=== PATIENT | male | born 2000 ===

== ENCOUNTER 2023-02-16 10:27 | Day surgery (SDC) | payer OTHER, MEDICAID, SELFPAY ==
[2023-02-11 10:44] VITALS: BMI 23.3
--- NOTE | 2023-02-15 08:19 | PM.PREOP ---
Pre-operative Note Interval Note History & Physical reviewed/Exam performed by Physician: Yes Changes to H&P: No
[2023-02-16] VITALS (10 sets, daily range): BP systolic 95–143; BP diastolic 55–89; PULSE 58–125; RESP 12–18; TEMP 36.1–36.6; O2SAT 98–100; BMI 22.8
[2023-02-16] MEDS: LACTATED RINGERS 1,000 ML 200 ML IV (11:05)
[2023-02-16] MEDS: ACETAMINOPHEN 325 MG TABLET 975 MG PO (11:05)
[2023-02-16] MEDS: CEFAZOLIN 2 GM/100 ML PREMIX 100 ML IV (13:06)
--- NOTE | 2023-02-16 13:18 | SUR.OPER ---
Supine on padded OR bed, head on pillow, arms padded and tucked at sides, legs uncrossed, safety belt at thigh.
[2023-02-16] MEDS: LACTATED RINGERS 1,000 ML 42 ML IV (13:28)
[2023-02-16] MEDS: BUPIVACAINE 0.25% (PF) VIAL 7 ML INJ (15:10)
--- NOTE | 2023-02-16 15:16 | PM.OP.1 ---
Operative Date/Time/Diagnoses Date of procedure: 02/16/23 Time of procedure: 15:16 Pre-op diagnosis: Left inguinal hernia Post-op diagnosis: same Procedure & Clinicians Procedure: Laparoscopic transabdominal preperitoneal repair of left inguinal hernia Same procedure as scheduled: Yes Indications: Symptomatic reducible left inguinal hernia Surgeon: Oneil Weldon Counter Checker: Yony Tubbs Anesthesia Type: General Operative Notes Findings: Large indirect defect extending down into the scrotum. No direct floor defect. No right-sided defects. Specimen(s): none sent Estimated Blood Loss (mL): 40 Procedure in detail: The patient was brought to the operating room and placed supine on the table. Bilateral sequential compression devices were applied. General anesthesia was induced and they were intubated with an endotracheal tube. A bledsoe cath was placed in sterile fashion. They received Ancef prior to skin incision. They were prepped and draped in sterile fashion. A time out was performed. The skin was infiltrated with 0.25% bupivicaine. A 1 cm supra umbilical midline incision was made. The fascia was sharply incised and the abdomen entered traumatically. A 10mm balloon port was placed and pneumoperitoneum was established at 15mm Hg. Inspection of the abdomen demonstrated no evidence of injury upon entry. Two 5 mm ports were then placed under direct visualization in the right and left lower quadrant lateral to the rectus muscle. A general inspection of the abdomen was made. There was no major abnormalities noted with the exception of a large left indirect inguinal hernia. There was no right-sided defect. The peritoneum 4 cm superior to the left deep inguinal ring between the medial umbilical ligament and the anterior superior iliac spine was incised. The medial preperitoneal dissection was carried out into the space of Retzius bluntly, the bladder was swept inferiorly, the pubis and Ozzie's ligament were identified. Next attention was turned towards the lateral aspect of the peritoneal flap. The preperitoneal fat with the testicular vessels was carefully dissected off the inferior peritoneal flap. There was a large fat containing indirect hernia. The cord was skeltonized and the indirect hernia was dissected off the cord structures. A large Bard 3D Max mesh was then placed into the abdomen and positioned such that the myopectineal orifice was completely covered with good overlap on all sides. The peritoneal flap was then repositioned back to its original position and a running V lock suture was used to close the peritoneum such that no bowel could herniate into the preperitoneal space. The area was examined for hemostasis. The 5mm trocars were removed under direct visualization and pneumoperitoneum was deflated through the umbilical trocar, The fascia at the umbilicus was closed with 0-Vicryl in figure of 8 fashion, skin closed with 4-0 Monocyl followed by Dermabond. The sponge and instrument count at the end of the case was correct. Both testicles were entirely within the scrotum at the end of the case. The patient emerged from anesthsia was extubated and transferred to recovery in stable condition. Complications: none Post-operative Condition: stable Disposition: same day surgery
[2023-02-16] MEDS: OXYCODONE/ACETAMINOPHEN 5/325 TABLET 1 TAB PO ×2 (15:33→15:52)
[2023-02-16] MEDS: ONDANSETRON 4 MG/2 ML INJ IV (15:43)
== END 2023-02-16 16:40 | disposition home or self-care (01) ==
PROVIDERS: Family Provider Pediatrics; Referring Provider Surgery; Visit Provider Surgery
PROC: 0YQ64ZZ Repair Left Inguinal Region, Percutaneous Endoscopic Approach (ICD-10-PCS; CPT 49650; principal; 2023-02-16 12:15)
DX: K40.90 Unilateral inguinal hernia, without obstruction or gangrene, not specified as recurrent (principal)
CPT/HCPCS: 49650; J0330; J0690; J1100; J1170; J1885; J2405; J3010

== ENCOUNTER 2023-09-06 06:31 | Day surgery (SDC) | payer OTHER, MEDICAID, SELFPAY ==
--- NOTE | 2023-09-06 | PATH_ITS ---
[facility] Accession Number: [id number] No. of containers..01 Tissue . 01 Material submitted: . body - LEFT HYDROCELE SAC . 01 Diagnosis: LEFT HYDROCELE SAC, EXCISION: Consistent with hydrocele. No evidence of neoplasm. MRV 09/09/2023 1103 Local . 01 Electronically signed: . Josh Najera MD, PhD, Pathologist NPI- [id number] . 01 Gross description: . The specimen is received in formalin labeled with the patient's name, , and left hydrocele sac, and consists of multiple fragments of black, membranous soft tissue aggregating to 10.3 x 5.5 x 0.4 cm. Sectioning reveals a black, soft cut surface with no lesions grossly identified. Clergy Member sections are submitted in cassette A1. ([id number]) /MRV 09/08/2023 1338 Local . 01 Pathologist provided ICD-10: N43.3 . 01 CPT . 030025 Specimen Comment: A courtesy copy of this report has been sent to [phone] Performed at: 01 [facility] [address] [place] [address] [id number] MD Valdez Puente MD Phone: [phone]
[2023-09-06 06:51] VITALS: BP 117/69; PULSE 76; RESP 16; TEMP 36.6; O2SAT 98; BMI 21.5
[2023-09-06] MEDS: LACTATED RINGERS 1,000 ML 21 ML IV (07:03)
--- NOTE | 2023-09-06 07:34 | PM.PREOP ---
Pre-operative Note COVID-19 COVID-19 status: Not tested Interval Note History & Physical reviewed/Exam performed by Physician: Yes Changes to H&P: No
--- NOTE | 2023-09-06 07:49 | SUR.OPER ---
Supine on padded OR bed, head on pillow, arms secured on padded arm boards at <90 degrees abduction, legs uncrossed, safety belt at thigh, tape over blanket over lower legs.
[2023-09-06] MEDS: CIPROFLOXACIN 400 MG/200 ML PIGGYBACK 200 MG IV (08:07)
[2023-09-06] MEDS: BUPIVACAINE 0.25% (PF) VIAL 30 ML INJ (08:37)
[2023-09-06] MEDS: BACITRACIN 28 GM OINT 1 APPLIC TOP (08:38)
--- NOTE | 2023-09-06 09:33 | PM.OP.1 ---
Procedure & Clinicians Procedure: Left hydrocelectomy Same procedure as scheduled: Yes Surgeon: Sabas Aguayo Click Yes if Unassisted: Yes Anesthesia Type: General Operative Notes Findings: Findings: Left hemiscrotal enlargement. Findings consistent with hydrocele. The sac contained clear yellow fluid as would be expected. The testicle epididymis and cord structures all appeared normal. There was no abnormality in the sac of the hydrocele. And otherwise normal anatomy was observed. Closure Type: primary Specimen(s): other (Left hydrocele sac) Prosthetic devices, grafts, tissues, transplants, or devices: None Estimated Blood Loss (mL): 10 Blood products transfused: none Procedure in detail: Procedure in detail: After informed consent was obtained, the patient was identified and brought to the operating room where he is placed in supine position on the table. Once their anesthesia was induced and maintained. At this point the patient was shaved, prepped, draped, prepared for left hemiscrotal surgery. After prepping, draping, ensuring an adequate level of anesthesia time-out and administration of antibiotics a transverse left hemiscrotal incision was made and carried down through the layers of the dartos. The hydrocele sac was dissected free from its investing layers. It was then entered anteriorly and the approximately 200 cc of clear yellow fluid was suctioned away. At this point the incision was extended in a vertical fashion and the right and left aspects of the hydrocele sac were excised with electrocautery. The sac was then forward to pathology for pathologic examination. The edges where the hydrocele sac had been excised were then run with a running 2-0 chromic gut suture. Hemostasis was achieved with this and electrocautery. Cord block was performed with 0.25% Marcaine plain and the testicle was returned to the scrotum. The dartos was then reapproximated with a running 2-0 Vicryl and the skin edges reapproximated with an interrupted vertical mattress of 2-0 chromic. Skin was infiltrated with 0.25% plain Marcaine bacitracin Telfa fluff scrotal support were applied as dressing. The patient was awakened having tolerated the procedure well to be transferred to the postanesthesia care unit for recovery. There were no complications Complications: none Post-operative Condition: stable Disposition: PACU Plan for aftercare: Patient to follow-up in my office in 10-14 days after discharge.
[2023-09-06 09:45] VITALS: BP 119/57; PULSE 94; RESP 14; TEMP 36.6; O2SAT 99
[2023-09-06 09:50] VITALS: BP 112/75; PULSE 81; RESP 12; O2SAT 100
[2023-09-06 09:55] VITALS: BP 112/78; PULSE 92; RESP 16; TEMP 36.6; O2SAT 99
[2023-09-06] MEDS: ACETAMINOPHEN IV 1,000 MG/100 ML VIAL 400 MG IV (09:57)
[2023-09-06 10:06] VITALS: BP 110/80; PULSE 87; RESP 16; TEMP 36.6; O2SAT 99
[2023-09-06] MEDS: OXYCODONE IR 5 MG TABLET PO (10:12)
== END 2023-09-06 10:32 | disposition home or self-care (01) ==
PROVIDERS: Family Provider Pediatrics; Referring Provider Urology; Visit Provider Urology
PROC: (CPT 55040; principal; 2023-09-06 07:45)
DX: N43.3 Hydrocele, unspecified (principal)
CPT/HCPCS: 55040; 82962; J0136; J0744; J1100; J1885; J2250; J2405; J2704; J3010

== ENCOUNTER 2024-03-16 12:05 | Emergency (ER) | payer OTHER, MEDICAID, SELFPAY ==
[2024-03-16 12:13] VITALS: BP 129/88; PULSE 86; RESP 14; TEMP 36.2; O2SAT 99; BMI 21.5
--- NOTE | 2024-03-16 12:58 | ED_ITS ---
HPI - Male Genitourinary <ELIDA Wheat - Last Filed: 03/16/24 14:20> General Chief complaint: Urogenital-Male Stated complaint: L testicle swelling Time Seen by Provider: 03/16/24 12:46 Source: patient Mode of arrival: Ambulatory History of Present Illness HPI Narrative: 24-year-old male, never smoker, presents to the emergency department with left testicular swelling over the last 2 months. History of left inguinal hernia repair approximately 1 year ago and left hydrocele repair in August 2023. Patient reports that the swelling never fully resolved, but believes the swelling has been gradually worsening over last 2 months. Patient denies any extraneous activity or trauma to that area. Patient denies any new sexual encounters, penile discharge or urinary symptoms that could be related to an STD. Patient reports intermittent twinges of pain but is most concerned about the swelling. Related Data Home Medications Medication Instructions Recorded Confirmed No Known Home Medications 08/25/23 03/16/24 Allergies Allergy/AdvReac Type Severity Reaction Status Date / Time Penicillins [PENICILLINS] Allergy Unknown Verified 03/16/24 12:16 Review of Systems <ELIDA Wheat - Last Filed: 03/16/24 14:20> Review of Systems Narrative: Narrative: See HPI. GENERAL: Denies chills, fatigue, fever, sweats. HEENT: Denies sinus pain, ear pain, sore throat, difficulty swallowing, dizziness. RESPIRATORY: Denies dyspnea, cough, wheezing, sputum. CARDIOVASCULAR: Denies chest pain, palpitations, edema. GASTROINTESTINAL: Denies nausea, vomiting, abdominal pain, diarrhea, con stipation. : Denies dysuria, frequency, incontinence, hematuria, urinary retention, flank pain, penile discharge. Endorses left testicular swelling. MSK: Denies weakness, joint pain, or bony pain. SKIN: Denies rash, skin lesions, or pruritis. NEUROLOGIC: Denies weakness, dizziness, headache, numbness, confusion. PSYCHIATRIC: No concerning psychosocial issues. Patient History <ELIDA Wheat - Last Filed: 03/16/24 14:20> Surgical History S/P repair of hydrocele Hx of left inguinal hernia repair Hx of tonsillectomy H/O thumb surgery Social History marital status: unmarried,single household members: family lives independently: Yes occupational status: employed Smoking Status: Never smoker alcohol intake: current substance use type: marijuana Smoking Status: Never smoker alcohol intake frequency: a few times a week Substance Use Type: marijuana Exam <ELIDA Wheat - Last Filed: 03/16/24 14:20> Narrative Exam Narrative: Exam Narrative: GENERAL: This is a well-nourished, well-developed patient, in no acute distress. HEAD: Atraumatic. Normocephalic. EYES: Pupils equal round and reactive. Extraocular motions intact. No scleral icterus, injection or drainage. ENT: Nose without bleeding, purulent drainage. Throat without erythema, tonsillar hypertrophy or exudate. Uvula midline. Airway patent. TMs and canals clear. No sinus tenderness. NECK: Trachea midline. No JVD or lymphadenopathy. Nontender. CARDIOVASCULAR: Regular rate and rhythm without murmurs, peripheral pulses intact, cap refill <2 sec. RESPIRATORY: Breath sounds equal and clear bilaterally. No wheezes, rales, or rhonchi. No cough. No increased respiratory effort. No accessory muscle use. GASTROINTESTINAL: Abdomen soft, non-tender, nondistended without guarding or rebound. No suprapubic pain. : Prehn sign not effective due to no pain prior to scrotal lifting. MSK: Moves all extremities. Normal range of motion, no clubbing or edema. Neurovascularly intact. NEURO: A&O x 3. SKIN: Warm, dry, no rashes or lesions noted. Initial Vital Signs Initial Vital Signs: Vital Signs Temperature 97.1 F L 03/16/24 12:13 Pulse Rate 86 03/16/24 12:13 Respiratory Rate 14 03/16/24 12:13 Blood Pressure 129/88 03/16/24 12:13 Pulse Oximetry 99 03/16/24 12:13 Oxygen Delivery Method Room Air 03/16/24 12:13 Reviewed External: circumcised, no lesions, scrotal swelling and nontender Penis: normal penis Meatus: meatus normal Scrotum: cremasteric reflex present and scrotal swelling Testes: testicular swelling <Rubin Garvey MD - Last Filed: 03/16/24 21:16> Initial Vital Signs Initial Vital Signs: Vital Signs Temperature 97.1 F L 03/16/24 12:13 Pulse Rate 86 03/16/24 12:13 Respiratory Rate 14 03/16/24 12:13 Blood Pressure 129/88 03/16/24 12:13 Pulse Oximetry 99 03/16/24 12:13 Oxygen Delivery Method Room Air 03/16/24 12:13 Course <ELIDA Wheat - Last Filed: 03/16/24 14:20> Orders Ordered: ED Orders 03/16/24 12:56 US scrotum Stat Chlamydia Gonorrhea PCR -URINE Stat Vital Signs Vital signs: Vital Signs - 8 hr 03/16/24 14:23 Pulse Rate 58 L Respiratory Rate 16 Blood Pressure 121/57 L Pulse Oximetry 98 Oxygen Delivery Method Room Air <Rubin Garvey MD - Last Filed: 03/16/24 21:16> Orders Ordered: ED Orders 03/16/24 12:56 US scrotum Stat Chlamydia Gonorrhea PCR -URINE Stat Vital Signs Vital signs: Vital Signs - 8 hr 03/16/24 14:23 Pulse Rate 58 L Respiratory Rate 16 Blood Pressure 121/57 L Pulse Oximetry 98 Oxygen Delivery Method Room Air MDM - Male Genitourinary <ELIDA Wheat - Last Filed: 03/16/24 14:20> Differential Diagnosis Differential diagnosis: Likely urinary tract infection and other (Hydrocele, epididymitis, testicular torsion) Lab Data Labs: Lab Results 03/16/24 Range/Units 12:56 Ur Chlamydia DNA (PCR) Not detected N gonorrhoeae DNA (PCR) Not detected Urine Dip Bedside Urine Glucose Negative Bedside Urine Bilirubin - Negative Bedside Urine Ketone - Negative Urine Specific [place] 1.020 Bedside Urine Occult Blood - Negative Bedside Urine pH 6.0 Bedside Urine Protein - Negative Bedside Urine Urobilinogen - Negative Bedside Urine Nitrite - Negative Bedside Urine Leukocytes - Negative Esterase Imaging Data US - Scrotal: Radiologist's Impression: [address] [address] Ultrasound Report Signed Patient: Geoffrey Miranda MR#: [id number] : 2000 Acct:[id number] Age/Sex: 24 / M Date of Service: 03/16/24 Loc: ED Accession Number: [id number] Procedure: US scrotum Ordering Provider: Lucas Lynch PROCEDURE: US SCROTUM INDICATIONS: Left scrotal swelling TECHNIQUE: Real-time scanning was performed of the scrotum and testicles, with image documentation. Color and pulse Doppler interrogation was performed of both testicles. COMPARISON: None. FINDINGS: Right: Testicle is normal in size at 5.0 x 2.7 x 3 point cm, and homogenous in echotexture. Epididymis demonstrates simple cyst. No hydrocele or varicoceles. Overlying scrotal skin is normal in thickness. Left: Testicle is normal in size at 4.0 x 3.1 x 3.9 cm, and homogeneous in echotexture. Epididymis demonstrates simple cyst. Hydrocele measuring 5.9 cm without varicoceles. Overlying scrotal skin is normal in thickness. Doppler: Color and pulse Doppler demonstrate normal and symmetric arterial flow in both testicles. IMPRESSION: No torsion at time of exam. Intermittent torsion cannot be excluded. Prominent hydrocele/prior spermatocele on the left. Bilateral epididymal cysts. Dictated by: Teresa Noriega M.D. on 03/16/2024 at 13:54 Approved by: Teresa Noriega M.D. on 03/16/2024 at 13:58 MDM Narrative Medical decision making narrative: 24-year-old male with left-sided scrotal swelling. Clinical findings were concerning for possible testicular torsion, epididymitis and hydrocele. Urine was tested for UTI and GC/chlamydia. Urine was negative for a UTI. Ultrasound ordered and revealed no current testicular torsion but a hydrocele and previous spermatocele. Bilateral epididymal cysts. Discussed case with Dr. Garvey. No home care required and will place a referral for Urology. Discussed plan of care and worsening symptoms that would necessitate a return visit with patient and stepmother, who verbalized understanding and was agreeable to course of action. <Rubin Garvey MD - Last Filed: 03/16/24 21:16> Lab Data Labs: Lab Results 03/16/24 Range/Units 12:56 Ur Chlamydia DNA (PCR) Not detected N gonorrhoeae DNA (PCR) Not detected Urine Dip Bedside Urine Glucose Negative Bedside Urine Bilirubin - Negative Bedside Urine Ketone - Negative Urine Specific [place] 1.020 Bedside Urine Occult Blood - Negative Bedside Urine pH 6.0 Bedside Urine Protein - Negative Bedside Urine Urobilinogen - Negative Bedside Urine Nitrite - Negative Bedside Urine Leukocytes - Negative Esterase Discharge Plan Departure Patient Disposition: Home Clinical Impression: Scrotal swelling Instructions: DI for Hydrocele-Adult Activity Restrictions/Additional Instructions: *You have been diagnosed with left-sided scrotal swelling. Your point of care urine dip was not consistent with UTI. We will give you a call once we have the results of the gonorrhea and chlamydia, and treat if indicated. The ultrasound revealed no current testicular torsion but does show bilateral cysts and left- sided hydrocele/spermatocele. I will place a referral to Urology in order to follow up as soon as possible. As we discussed, for any worsening symptoms that includes intolerable pain, etc. please return to the emergency room immediately. *What to do: *Please continue to take your regular medications as directed. [ ] New medication prescriptions sent to your pharmacy: [ ] [ ] New medication written as a paper prescription [ x] No new medications given *Please follow up with your primary care provider in 2-3 days, call for an appointment. Let them know you were seen in the Emergency Department and that we ask that you be seen in follow up. We will electronically transmit a record of today's note if your PCP is in our system *If you do not have a primary care provider please contact the [facility] Resource line at [phone]. They will ask some questions about your medical history and help get you set up with a doctor in the community. ? Return to ER if you should have any new, worsening or concerning symptoms, such as worsening pain, severe headache, confusion, chest pain, difficulty breathing, fever greater than 101 F, shaking chills, persistent vomiting to the point that you cannot drink fluids, or other new or worsening symptoms. Prescriptions: No Action No Known Home Medications Referrals: Rito Escoto DO [Physician] - (Please evaluate and treat left scrotal swelling.) Miscellaneous,DoctorMD [Primary Care Provider] - Stand Alone Forms: Patient Portal/API ED Sign-out <Rubin Garvey MD - Last Filed: 03/16/24 21:16> Cosign ED Attending Cosignature Attestation: I was immediately available in the department for consultation. This documentation has been reviewed and I agree with assessment and plan. Supervised by Rubin Garvey MD
--- NOTE | 2024-03-16 13:05 | PC.NURSE ---
Pt reports having hydrocele surgery in which he states he was recovering fine up until a couple months ago he started developing worsening swelling. Pt states he has intermittent pain; but nothing particularly triggers the pain
[2024-03-16 14:23] VITALS: BP 121/57; PULSE 58; RESP 16; O2SAT 98
[2024-03-16 14:36] LABS: Urine Chlamydia NOT DETECTED; Urine N gonorrhoeae NOT DETECTED
== END 2024-03-16 14:23 | disposition home or self-care (01) ==
PROVIDERS: Emergency Provider Registered Nurse; Family Provider Pediatrics
DX: N50.89 Other specified disorders of the male genital organs (principal)
CPT/HCPCS: 76870; 81003; 87491; 87591; 93975; 99282; 99283

== ENCOUNTER 2024-04-16 06:28 | Day surgery (SDC) | payer OTHER, MEDICAID, SELFPAY ==
[2024-04-12 15:16] VITALS: BMI 21.5
[2024-04-16 06:47] VITALS: BP 110/61; PULSE 61; RESP 16; TEMP 36.2; O2SAT 99; BMI 21.5
[2024-04-16] MEDS: LACTATED RINGERS 1,000 ML 42 ML IV ×2 (07:01→09:02)
[2024-04-16 07:17] VITALS: BMI 21.5
--- NOTE | 2024-04-16 07:31 | PM.PREOP ---
Pre-operative Note Interval Note History & Physical reviewed/Exam performed by Physician: Yes Changes to H&P: No
[2024-04-16] MEDS: CLINDAMYCIN 900 MG/50 ML PIGGYBACK 50 MG IV (07:41)
--- NOTE | 2024-04-16 08:00 | SUR.OPER ---
Supine on padded OR bed, head on pillow, arms secured on padded arm boards at <90 degrees abduction, legs uncrossed, safety belt at thigh, tape over blanket over lower legs.
[2024-04-16] MEDS: LIDOCAINE 1% 20 ML INJ (08:04)
[2024-04-16] MEDS: BUPIVACAINE 0.5% (PF) 30 ML VIAL INJ (08:05)
[2024-04-16] MEDS: BACITRACIN OINT 0.9 GM PCKT 1 APPLIC TOP (10:05)
[2024-04-16 10:13] VITALS: BP 123/81; PULSE 100; RESP 19; TEMP 36.3; O2SAT 99
[2024-04-16 10:18] VITALS: BP 102/72; PULSE 97; RESP 12; O2SAT 97
[2024-04-16 10:23] VITALS: BP 100/57; PULSE 103; RESP 13; TEMP 36.3; O2SAT 100
--- NOTE | 2024-04-16 10:23 | PM.OP.1 ---
Procedure & Clinicians Procedure: Left hydrocelectomy Same procedure as scheduled: Yes Indications: 24 y/o M w/ a recurrent left hydrocele following a left inguinal hernia repair in late 2022 and left hydrocelectomy in Aug. Surgeon: Rito Escoto Click Yes if Unassisted: Yes Anesthesia Type: General Operative Notes Findings: Recurrent and very difficult to dissect left hydrocele Closure Type: primary Specimen(s): none sent Estimated Blood Loss (mL): 3 Blood products transfused: none Procedure in detail: Patient was identified in the preoperative holding area and consent confirmed. He was then brought to the operating room and placed supine on the operating room table where general anesthesia was induced. All bony prominences were then properly padded and he was prepped and draped in the standard sterile fashion. A surgical timeout was conducted and all members of the operating team were in agreement. A 5cm transverse incision was marked on the left hemiscrotum using a marking pen. This was then incised using a 15 blade. The dissection was then carried down through the subcutaneous tissue and dartos fascia using bovie electrocautery. The hydrocele sac was then delivered onto the operative field through the incision. The testicle was noted to be at the inferior pole of the hydrocele sac. Freeing the hydrocele sac circumferentially from the surrounding dartos fascia as well as the left testicle was extremely difficult. The hydrocele sac was very adherent to the left testicle and took significant amount of time to dissect free from the left testicle. Next, the hydrocele sac was entered using bovie electrocautery and the fluid was manually evacuated. Throughout the entire procedure, care was taken to avoid the left testicle and spermatic cord, which were both preserved at case end. Excess hydrocele sac was then ligated using bovie electrocautery. The edges of tunica vaginalis were then oversewn using 3-0 Vicryl in a running fashion. The scrotum was then inspected for hemostasis, which was noted to be excellent. A chelsea drain was then brought out the inferior most portion of his left hemiscrotum and secured to the skin using a 3-0 Nylon stitch. The left testicle was placed back into the left hemiscrotum in correct anatomic position and without twisting of the spermatic cord. Of note, the left testicle appeared to be slightly darker than I expected and was noted to have some oozing from the tunica albuginea at case end, however, appeared to be healthy and viable. The incision was then closed in two separate layers. Dartos was reapproximated using 3-0 Vicryl in a running fashion. The skin edges were then reapproximated using 3-0 Chromic in a running baseball stich fashion. Bacitracin was then applied to the incision. A total of 20cc of 1:1 mixture of 1% Lidocaine plain and 0.5% Marcaine plain was used for incision and cord block anesthetic. Fluff gauze and scrotal support was then placed over the incision. Anesthesia was reversed, he was extubated in the OR and transferred to the PACU in stable condition for recovery. Complications: none Post-operative Condition: stable Disposition: PACU Plan for aftercare: Discharge home from PACU. He will return to clinic on 19 Apr 2024 to have his chelsea drain removed.
[2024-04-16 10:30] VITALS: BP 113/77; PULSE 92; RESP 7; O2SAT 0
[2024-04-16] MEDS: OXYCODONE IR 5 MG TABLET PO ×2 (10:30→11:00)
[2024-04-16] MEDS: ACETAMINOPHEN 325 MG TABLET 975 MG PO (10:30)
[2024-04-16 10:40] VITALS: BP 119/72; PULSE 88; RESP 12; O2SAT 100
[2024-04-16] MEDS: hydrOXYzine 50 MG/ML INJ 25 MG IM (10:59)
== END 2024-04-16 11:15 | disposition home or self-care (01) ==
PROVIDERS: Family Provider Pediatrics; Referring Provider Urology; Visit Provider Urology
PROC: (CPT 55040; principal; 2024-04-16 07:45)
DX: N43.3 Hydrocele, unspecified (principal)
CPT/HCPCS: 55040; J1100; J1171; J2250; J2405; J2704; J3010; J3410

== ENCOUNTER 2024-12-27 12:14 | Emergency (ER) | payer OTHER, MEDICAID, SELFPAY ==
[2024-12-27 12:25] VITALS: BP 125/60; PULSE 62; RESP 16; TEMP 36.6; O2SAT 100; BMI 22.1
--- NOTE | 2024-12-27 13:18 | ED_ITS ---
<Statement entered by Dann Gaona, DO - 12/27/24 18:18> Co-sign statement: I was available for consultation during this patient's emergency department visit. This chart is beside by myself for administrative purposes only. I do not have direct contact with this patient during this visit. They were seen independently by the [facility]. HPI - Abdominal Pain General Chief Complaint: Abdominal Pain Stated Complaint: dizzy, weak, disoriented tired, started last night Time Seen by Provider: 12/27/24 12:40 Source: patient Mode of arrival: Family Vehicle History of Present Illness HPI narrative: Mr. Miranda is a very pleasant 24-year-old male with a past medical history of hydrocele and inguinal surgery who presents to the emergency department for an episode of sweating, fatigue that occurred prior to arrival and with URI symptoms for the last 2 weeks. Patient states about 2 weeks ago he was sick with a cold, fevers, chills however this started to get much better and then a few days ago he started developing a cough, sore throat, runny nose again. Last night he had a mild headache that resolved with medication that his mom gave him. When he woke up this morning he overall felt fine however when he got to work he started to feel sweaty and extremely weak. This episode lasted for about 20-25 minutes in started to improve after he started eat breakfast. Patient was concerned that his blood sugar may have dropped however he has no history of diabetes and does not have glucometer. At this time those symptoms have resolved and he overall feels at his baseline help except for mild runny n ose and occasional cough. He denies current fevers, chills, chest pain, shortness of breath, abdominal pain, nausea, vomiting, diarrhea, dysuria, hematuria. He denies any visual disturbance, room spinning or presyncope during his episode earlier today. POC glucose 118. Related Data Home Medications ?Medication ?Instructions ?Recorded ?Confirmed No Known Home Medications 08/25/2303/11 Previous Rx's ?Medication ?Instructions ?Recorded oxycodone 5 mg tablet 5 mg PO Q8H PRN pain #8 tabs 04/16/24 Allergies Allergy/AdvReac Type Severity Reaction Status Date / Time Penicillins (PENICILLINS) Allergy Unknown Verified 12/27/24 12:26 Review of Systems Review of Systems ROS Unobtainable: All systems reviewed & are unremarkable except as noted in HPI and below Patient History Surgical History S/P repair of hydrocele Hx of left inguinal hernia repair Hx of tonsillectomy H/O thumb surgery Social History marital status: unmarried,single household members: family lives independently: Yes occupational status: employed Smoking Status: Never smoker alcohol intake: current substance use type: marijuana Smoking Status: Never smoker alcohol intake frequency: a few times a week Exam Narrative Exam Narrative: GENERAL: 24 year old patient appears stated age. Well-developed patient, in no acute distress. HEAD: Atraumatic. Normocephalic. EYES: PERRL. Extraocular motions intact. No scleral icterus. No injection or drainage. ENT: Nose without bleeding, purulent drainage. Throat with mild posterior oropharyngeal erythema, uvula is midline and there is no tonsillar exudates. Normal pearly cortez TMs bilaterally. NECK: Trachea midline. Cervical ROM intact. No meningeal signs. CARDIOVASCULAR: Regular rate and rhythm. RESPIRATORY: ?Nonlabored respirations. ?Speaking in clear, full sentences. ?Clear to auscultation. Breath sounds equal bilaterally. No wheezes, rales, or rhonchi. ? EXTREMITIES: No edema or joint tenderness. BACK: Nontender without deformity or crepitance. No flank tenderness. NEURO: AOx3. ?Clear speech. ?Moves all 4 extremities appropriately. Steady gait. No facial asymmetry. SKIN: No rash or erythema of visible areas Initial Vital Signs Initial Vital Signs: Vital Signs Temperature 97.9 F 12/27/24 12:25 Pulse Rate 62 12/27/24 12:25 Respiratory Rate 16 12/27/24 12:25 Blood Pressure 125/60 12/27/24 12:25 Pulse Oximetry 100 12/27/24 12:25 Oxygen Delivery Method Room Air 12/27/24 12:25 Course Orders Ordered: ED Orders 12/27/24 12:34 Covid-19 + FLU A/B + RSV - PCR Stat 12/27/24 13:17 XR chest 2V Stat Discontinued Medications Acetaminophen (Acetaminophen 325 Mg Tablet) 975 mg PO NOW ONE Stop: 12/27/24 13:18 Last Admin: 12/27/24 13:28 Dose: 975 mg Documented By: DAMIEN Vital Signs Vital signs: Vital Signs - 8 hr 12/27/24 12:25 12/27/24 14:25 Temperature 97.9 F Pulse Rate 62 60 Respiratory Rate 16 16 Blood Pressure 125/60 121/60 Pulse Oximetry 100 100 Oxygen Delivery Method Room Air Room Air MDM - Abdominal Pain Lab Data Labs: Lab Results 12/27/24 Range/Units 12:34 SARS-CoV-2 (PCR) Positive H (Negative) Influenza A (RT-PCR) Flu a negative (NEGATIVE) Influenza B (RT-PCR) Flu b negative (NEGATIVE) RSV (PCR) Negative (Negative) Point of care testing: Point of Care Testing Glucose POC 118 Imaging Data Chest x-ray: Radiologist's Impression: PROCEDURE: XR CHEST 2V INDICATIONS: uri sx x 2 weeks TECHNIQUE: 2 views of the chest were acquired. COMPARISON: None. FINDINGS: Surgical changes and devices: None. Lungs and pleura: Lungs are clear. No pleural effusions or pneumothorax. Mediastinum: Mediastinal contours are normal. Heart size is normal. Bones and chest wall: No suspicious bony abnormalities. Soft tissues appear unremarkable. IMPRESSION: No acute pulmonary process. Dictated by: Teresa Noriega M.D. on 12/27/2024 at 13:51 Approved by: Teresa Noriega M.D. on 12/27/2024 at 13:51 [facility] Narrative Medical decision making narrative: 24-year-old male with a past medical history of hydrocele and inguinal surgery who presents to the emergency department for an episode of sweating, fatigue that occurred prior to arrival and with URI symptoms for the last 2 weeks. Differential diagnosis includes but is not limited to viral syndrome, pneumonia, bronchitis, pharyngitis, dehydration, electrolyte abnormality, hypoglycemia, etc. On exam patient is in no acute distress, nontoxic-appearing, all vital signs within normal limits. Lungs are clear to auscultation bilaterally, posterior oropharynx is erythematous however uvula is midline, no meningeal signs. Point of care glucose is 118. We will obtain viral swab and chest x-ray as concern for underlying viral syndrome contributing to symptoms today however patient has been sick overall for about 2 weeks. We will treat with Tylenol and oral hyd ration. Chest x-ray negative for pneumonia. Patient did test positive for COVID-19. He is felt well throughout his entire ER stay. Recommended supportive care with hydration, rest, ibuprofen, Tylenol, staying home from work. Discussed follow up with PCP and strict ED return precautions. Patient verbalized understanding of all information agreeable with the plan, all vital signs within normal limits. Discharge Plan Departure Patient Disposition: Home Clinical Impression: COVID-19 Instructions: DI for COVID-19 (Suspected or Confirmed ) Activity Restrictions/Additional Instructions: Dear Mr. Miranda, Thank you for coming to the emergency department. Today you tested positive for COVID-19. You tested negative for flu a, flu B, RSV and your chest x-ray was clear. Please rest, hydrate, use ibuprofen and Tylenol as needed for fevers. Please do not go to work on Tuesday, if you are feeling better you may return to work on Tuesday. Please take Ibuprofen (Motrin/Advil) or Acetaminophen (Tylenol) for pain. These are available over the counter. You may take Ibuprofen 600 mg every 8 hours with food for pain. You may also take Acetaminophen 650 mg every 4-6 hours for pain. Do not exceed 3000 mg of Tylenol a day as this can cause liver damage. Do not drink alcohol with either of these medications. Please return to the ER immediately if you develop difficulty breathing, shortness of breath, chest pain, worsening symptoms or any other concerns. Please follow up with your primary care doctor within the next 2-3 days for ER follow-up. (If you do not have a PCP you can call [phone]. ?to schedule an appointment with an [facility] Primary Care Provider) IF YOU DEVELOP ANY NEW OR WORSENING SYMPTOMS, RETURN TO THE ER! Please read the attached instructions, they highlight more specific treatments and interventions for you at home. Thank you for letting me participate in your care, Vivian Haile PA-C Prescriptions: No Action No Known Home Medications oxycodone 5 mg tablet 5 mg PO Q8H PRN (Reason: pain) Qty: 8 0RF Stand Alone Forms: Patient Portal/API
[2024-12-27 13:20] LABS: Influenza A - CEPHEID Flu A NEGATIVE (NEGATIVE); Influenza B - CEPHEID Flu B NEGATIVE (NEGATIVE); Respiratory Syncytial Virus Negative (Negative)
[2024-12-27] MEDS: ACETAMINOPHEN 325 MG TABLET 975 MG PO (13:28)
[2024-12-27 13:34] LABS: COVID-19 CEPHEID 4-PLEX PCR POSITIVE (Negative)
[2024-12-27 14:25] VITALS: BP 121/60; PULSE 60; RESP 16; O2SAT 100
== END 2024-12-27 14:26 | disposition home or self-care (01) ==
PROVIDERS: Family Medicine; Emergency Provider Physician Assistant; Family Provider Pediatrics
DX: U07.1 COVID-19 (principal)
CPT/HCPCS: 0241U; 71046; 82962; 99283

== ENCOUNTER 2025-02-08 22:25 | Emergency (ER) | payer OTHER, MEDICAID, SELFPAY ==
[2025-02-08 22:46] VITALS: BP 120/74; PULSE 110; RESP 16; TEMP 36.6; O2SAT 98; BMI 22.8
--- NOTE | 2025-02-08 23:23 | ED.EYEPROB ---
HPI - Eye Problem General Chief complaint: Eye Problems Stated complaint: Swollen LT Eye, irritation, poss debris in eye Time Seen by Provider: 02/08/25 22:28 Source: patient Mode of arrival: Ambulatory History of Present Illness HPI Narrative: 25-year-old gentleman driving yesterday when he believe he got dirt does from golf cart and developed swelling over the left eye today despite flushing it several times at home. He feels scratchy foreign body sensation left upper outer quadrant. He does not wear glasses or contact lens. He denies any blurred vision, or discharge. Nothing makes it better or worse. Other than what is stated 14 point review of system is negative. Related Data Previous Rx's ?Medication ?Instructions ?Recorded oxycodone 5 mg tablet 5 mg PO Q8H PRN pain #8 tabs 04/16/24 bacitracin 500 unit/gram topical 1 applic topical TID #14 grams 02/08/25 ointment Allergies Allergy/AdvReac Type Severity Reaction Status Date / Time Penicillins (PENICILLINS) Allergy Unknown Verified 02/08/25 22:46 Review of Systems Review of Systems ROS Unobtainable: All systems reviewed & are unremarkable except as noted in HPI and below Patient History Surgical History S/P repair of hydrocele Hx of left inguinal hernia repair Hx of tonsillectomy H/O thumb surgery Social History marital status: unmarried,single household members: family lives independently: Yes occupational status: employed alcohol intake: current substance use type: marijuana Smoking Status: Current some day smoker alcohol intake frequency: a few times a week Exam Narrative Exam Narrative: GENERAL: [25] year old patient appears stated age. Well-developed patient, in mild distress. HEAD: Atraumatic. Normocephalic. EYES: Pupils equal round and reactive. Extraocular motions intact. No scleral icterus. No injection or drainage. Left upper eyelid red and swollen but no signs of periorbital or orbital cellulitis ENT: Nose without bleeding, purulent drainage. Throat without erythema, tonsillar hypertrophy or exudate. Airway patent. NECK: Trachea midline. Non tender CARDIOVASCULAR: Regular rate and rhythm without murmurs, gallops, or rubs. RESPIRATORY: Clear to auscultation. Breath sounds equal bilaterally. No wheezes, rales, or rhonchi. GASTROINTESTINAL: Abdomen soft, non-tender, nondistended. EXTREMITIES: No edema or joint tenderness. BACK: Nontender without deformity or crepitance. No flank tenderness. NEURO: AOx3. SKIN: No rash or erythema of visible areas Initial Vital Signs Initial Vital Signs: Vital Signs Temperature 97.8 F 02/08/25 22:46 Pulse Rate 110 H 02/08/25 22:46 Respiratory Rate 16 02/08/25 22:46 Blood Pressure 120/74 02/08/25 22:46 Pulse Oximetry 98 02/08/25 22:46 Oxygen Delivery Method Room Air 02/08/25 22:46 Course Orders Ordered: Discontinued Medications Fluorescein Sodium (Fluorescein 1 Mg Strip) 1 mg EYE-LEFT NOW ONE Stop: 02/08/25 22:41 Proparacaine HCl (Proparacaine 0.5% Ophth Taylor) 1 drops EYE-LEFT NOW ONE Stop: 02/08/25 22:41 Vital Signs Vital signs: Vital Signs - 8 hr 02/08/25 22:46 Temperature 97.8 F Pulse Rate 110 H Respiratory Rate 16 Blood Pressure 120/74 Pulse Oximetry 98 Oxygen Delivery Method Room Air MDM - Eye Problem MDM Narrative Medical decision making narrative: Vital signs, nurse triage note, medication list, previous ER visits, and all imaging studies reviewed. Fluorescein strip and Wood's lamp used no uptake noted, no foreign body seen or corneal abrasion. Differential diagnosis blepharitis, orbital and periorbital cellulitis foreign body. DC home on bacitracin ointment warm compress. Discharge Plan Departure Patient Disposition: Home Clinical Impression: Blepharitis Qualifiers: Blepharitis type: unspecified type Laterality: left Eyelid: upper Qualified Code(s): H01.004 - Unspecified blepharitis left upper eyelid Instructions: DI for Blepharitis Activity Restrictions/Additional Instructions: Return with new or worsening symptoms. Apply warm compress to affected eye 3 times a day and also topical antibiotic as prescribed. Follow up PCP 1-2 weeks if no improvement in symptoms. Prescriptions: New bacitracin 500 unit/gram ointment 1 applic topical TID Qty: 14 0RF No Action oxycodone 5 mg tablet 5 mg PO Q8H PRN (Reason: pain) Qty: 8 0RF Stand Alone Forms: Patient Portal/API
[2025-02-08] MEDS: FLUORESCEIN 1 MG STRIP EYE-LEFT (23:30)
[2025-02-08] MEDS: PROPARACAINE 0.5% OPHTH SOL 1 DROPS EYE-LEFT (23:30)
[2025-02-09] MEDS: BACITRACIN OINT 0.9 GM PCKT 1 APPLIC TOP (00:17)
[2025-02-09 00:21] VITALS: BP 120/72; PULSE 99; RESP 16; O2SAT 100
== END 2025-02-09 00:22 | disposition home or self-care (01) ==
PROVIDERS: Emergency Provider Family Medicine; Family Provider Pediatrics
DX: H01.004 Unspecified blepharitis left upper eyelid (principal)
CPT/HCPCS: 99282